=== PATIENT | female | born 1970 | race Caucasian/White ===

== ENCOUNTER 2021-05-24 08:12 | Day surgery (SDC) | payer BC ==
[~2021-05-24] VITALS: Ht 170.2 cm; Wt 80.2 kg
[~2021-05-24 08:12] MED LIST: B-12; CELEXA 20MG20 MG/TAB PO; DUO-KAPS1 CAP PO; PRILOSEC 20MG20 MG PO
[2021-05-24] MEDS ORDERED: PROZAC 20MG20 MG PO (09:00)
--- NOTE | 2021-05-24 09:04 | NUR ---
PATIENT HAS NEGATIVE COVID TEST ON PHONE DATED 05/23.
[2021-05-24 09:11] VITALS: BP 114/76; PULSE 65; TEMP 97
[2021-05-24 10:50] VITALS: BP 103/65; PULSE 58; TEMP 97.5
--- NOTE | 2021-05-24 10:50 | NUR ---
Pt to [facility] via cart. Pt drowy, but awake. Pt ambulates to recliner with stand by assistance. in room. Juice and muffin given per pt request. Will continue to monitor. Call light within reach.
[2021-05-24 11:05] VITALS: BP 113/73; PULSE 62
--- NOTE | 2021-05-24 11:05 | NUR ---
Pt continues to rest. Denies needs. Call light within reach.
[2021-05-24 11:20] VITALS: BP 122/75; PULSE 55
--- NOTE | 2021-05-24 11:20 | NUR ---
Pt denies needs. into see pt. Call light within reach.
--- NOTE | 2021-05-24 11:50 | NUR ---
Discharge instructions reviewed. Pt voices understanding. IV site discontinued with all parts intact. Pt up to dress. Call light within reach.
--- NOTE | 2021-05-24 12:00 | NUR ---
Pt escorted to private car via wheel chair. Pt accompanied home by her .
== END 2021-05-24 12:00 | disposition home or self-care (01) ==
LOC: SDCO 08:12
DX: Z12.11 Encounter for screening for malignant neoplasm of colon (principal); D12.3 Benign neoplasm of transverse colon; K21.9 Gastro-esophageal reflux disease without esophagitis; K44.9 Diaphragmatic hernia without obstruction or gangrene; D50.9 Iron deficiency anemia, unspecified; K29.31 Chronic superficial gastritis with bleeding; K21.00 Gastro-esophageal reflux disease with esophagitis, without bleeding; K64.0 First degree hemorrhoids; M19.90 Unspecified osteoarthritis, unspecified site; F41.9 Anxiety disorder, unspecified; F32.9 Major depressive disorder, single episode, unspecified; Z79.899 Other long term (current) drug therapy; Z98.84 Bariatric surgery status; Z90.49 Acquired absence of other specified parts of digestive tract; Z90.710 Acquired absence of both cervix and uterus; Z82.49 Family history of ischemic heart disease and other diseases of the circulatory system; Z83.3 Family history of diabetes mellitus
CPT/HCPCS: J2704; J3010; J7030

== ENCOUNTER → 2021-11-01 | Outpatient (CLI) | payer BC ==
[~2021-11-01] MED LIST changes: +PROZAC 20MG20 MG PO
== END ==
LOC: COL.RAD 09:41
DX: K44.9 Diaphragmatic hernia without obstruction or gangrene (principal); K21.9 Gastro-esophageal reflux disease without esophagitis; Z98.84 Bariatric surgery status